=== PATIENT | female | born 1985 | race Caucasian/White ===

== ENCOUNTER 2024-12-26 08:15 | Outpatient (CLI) | payer OTHER, SELFPAY ==
--- OUTSIDE RECORDS SUMMARY | 2024-12-26 08:30 | XMS_ITS | Clinical Summary ---
Author Organization [employer] [facility] Address [address] [place] [address] Care Team Providers Care Safety Lamp Keeper Name Role Phone Alyx Hayes MD Primary Care Provider Source Comments [employer] [facility],non-owned Affiliates and Associated Physician Practices is amultiple site organization consisting of ambulatory clinics and hospital sitesin [place], [place], [place] and [place]. This disclosure is being madepursuant to the Care Everywhere program and may not contain all information available regarding this patient. Last updated 17.[employer] [facility] Allergies No known active allergies Medications * This document contains information received from the source organization and may not represent a complete record from that organization. * Be aware that medications may not be up to date on this document. Alwaysverify current medications with the patient. LORazepam (Ativan) 1 MG tabletIndicatio ns:Anxiety Take 1 (one) tablet by mouth 2 times daily as needed for Anxiety Reasons: Feeling Anxious 15 tablet 3 Active FLUoxetine (PROzac) 20 MG capsuleIndicati ons:Depression Take 1 (one) capsule by mouth once daily Reasons: Depression 30 capsule 2 3 Active nicotine polacrilex (Nicorette) 2 MG gumIndications: Nicotine Dependence Take 1 (one) Each by mouth as needed for Smoking Cessation - Gum should be slowly chewed until a peppery taste emerges, then parked between cheek and gum to facilitate nicotine absorption. - Avoid eating or drinking for 15 minutes before and during chewing gum. Reasons: Nicotine Addiction 20 Each 3 Active Active Problems Problem Noted Date Diagnosed Date Adjustment disorder with mixed anxiety and depre ssed mood 07/31/2022 Hx of section 08/01/2020 Encounter for anatomic survey 08/01/2020 AMA (advanced maternal age) multigravida 35+, second trimester 08/01/2020 History of gestational diabetes mellitus (GDM) 0 08/01/2020 Social History Tobacco Use Types Packs/Day Years Used Date Smoking Tobacco: Every Day Cigarettes Smokeless Tobacco: Never Tobacco Cessation:Ready to Q uit: No; Counseling Given: Yes Alcohol Use Standard Drinks/Week Comments Never 0 (1 standard drink = 0.6 oz pur e alcohol) AUDIT-C Answer Date Recorded Q1: How often do you have a drink containing alcohol? Never 07/31/2022 Q2: How many drinks containi ng alcohol do you have on a typical day when you are drinking? Patient does not drink Q3: How often do you have si x or more drinks on one occasion? Never 07/31/2022 Overall Financial Resource Strain (CARDIA) Answe r Date Recorded How hard is it for you to pa y for the very basics like food, housing, medical care, and heating? Not very hard 07/31/2022 [facility] [place] [facility] Occupat ional Health - Occupational Stress Questionnaire Answer Date Recorded Do you feel stress - tense, restless, nervous, or anxious, or unable to sleep at night because your mind is troubled all the time - these days? Very much 07/31/2022 Hunger Vital Sign Answer Date Recorded Within the past 12 months, y ou worried that your food would run out before you got the money to buy more. Never true 08/01/19 23 Within the past 12 months, t he food you bought just didn't last and you didn't have money to get more. Never true 07/31/2022 PRAPARE - Transportation Answer Date Re corded In the past 12 months, has l ack of transportation kept you from medical appointments or from getting medications? No 07/13 In the past 12 months, has l ack of transportation kept you from meetings, work, or from getting things needed for daily living? No 07/31/2022 Housing Stability Vital Sign Answer Juan Carlos e Recorded In the last 12 months, was t here a time when you were not able to pay the mortgage or rent on time? No 07/31/2022 In the last 12 months, how many places have you lived? 1 07/31/2022 In the last 12 months, was t here a time when you did not have a steady place to sleep or slept in a care home (including now)? No 07/31/2022 Comments No Sex and Gender Information Value Date Recorded Sex Assigned at Not on file Legal Sex Female 7:10 AM [employer] Gender Identity Not on file Sexual Orientation Not on file Last Filed Vital Signs Vital Sign Reading Time Taken Comments Blood Pressure 110/76 08/04/2022 7:15 AM CDT Pulse 73 08/04/2022 7:15 AM CDT Temperature 36.6 C (97.9 F) 08/04/2022 7:15 AM CDT Respiratory Rate 18 08/04/2022 7:15 AM CDT Oxygen Saturation 98% 08/04/2022 7:15 AM CDT Inhaled Oxygen Concentration 21% 08/01/2022 1 1:37 PM CDT Weight 110 kg (242 lb 9.6 oz) 07/31/2022 1:14 AM CDT Height 165.1 cm (5' 5) 07/31/2022 1:14 AM CDT Body Mass Index 40.37 07/31/2022 1:14 AM CDT Plan of Treatment Health Maintenance Due Date Last Done Comments LIPID TESTING 1983 MAMMOGRAM 1983 HEPATITIS C SCREENING 10/26/2001 DTAP/TDAP/TD VACCINES (1 - Tdap) 10/30/2002 HEPATITIS B VACCINE (1 of 3 - 19+ 3-dose series) 10/30/2002 PNEUMOCOCCAL VACCINE (1 of 2 - PCV) 10/30/2002 PAP SMEAR 10/30/2004 HPV VACCINE (1 - 3-dose SCDM series) 10/30/2010 DEPRESSION SCREENING 03/15/2024 COVID-19 VACCINE (1 - 2023- season) 2024 INFLUENZA VACCINE (#1) 2024 , 01/06/2019, 01/27/2018, Additional history exists ZOSTER VACCINE (1 of 2) 10/30/2033 HIV SCREENING Completed 10/14/2020 HIB VACCINE Aged Out No longer eligi ble based on patient's age to complete this topic MENINGOCOCCAL (Group B) VACCINE SHARED DECISION-MAKING Aged Out No longer eligible based on patient's age to complete this topic MENINGOCOCCAL GROUPS A/C/Y/W VACCINE Aged Out No longer eligible based on patient's age to complete this topic Insurance [facility] Address: [facility] [address] [place] [address] [place] [facility] Advance Directives * Full Code (Latest Code Status on File) Date Activated Date Inactivated Comments 07/31/2022 1:16 AM 08/04/2022 11:33 AM Care Teams Safety Lamp Keeper Relationship Specialty Start Date End Date Alyx Hayes MD [address] [place] [address] PCP - General Family Medicine 07/31/22
--- OUTSIDE RECORDS SUMMARY | 2024-12-26 08:30 | XMS_ITS | Patient Health Record ---
Author Organization [facility] Address [address] [place] [address] Care Team Providers Care Ecmo Specialist Name Role Phone Dr. Alyx Hayes Primary Care Provider [phone] Fabricio Bustillo Unavailable [phone] Ju Chaney Unavailable [phone] Alyx Cruz Unavailable [phone] Migration, Provider Unavailable Unavailable Dr. Symone Baker Unavailable [phone] Allergies No Known Allergies Results Component Value Reference Range Flag Notes Hemoglobin A1C Reviewed date:06/26/2024 12:16:34 PM Interpretation:5.6% Performing Lab: Notes/Report: 5.6% Hemoglobin A1c {Glycosylated } Reviewed date:07/27/2024 10:31:58 PM Interpretation: Performing Lab: Notes/Report: Test Performed by: [address] [address] Body Sander: Sandor Vaz DO Hemoglobin A1c 5.6 <=6.4 % Hemoglobin A1C < 5.7% = Normal 5.7-6.4% = Increased risk for future diabetes >=6.5% = Diabetes eAvg Glucose 114 <=117 mg/dL eAG Reference Range <117 mg/dL = Normal 117-137 mg/dL = Increased Risk For Future Diabetes >137 mg/dL = Diabetes Comprehensive Metabolic Pane l Reviewed date:07/27/2024 10:31:58 PM Interpretation: Performing Lab: Notes/Report: Test Performed by: [address] [address] Body Sander: Sandor Vaz DO Glucose Lvl 125 74-109 mg/dL H ADA risk stratification for diabetes <100 mg/dL = Normal 100-125 mg/dL = Increased risk for future diabetes >=126 mg/dL = Diabetes, if on more than one testing occasion BUN 10 7-25 mg/dL Creatinine Lvl 0.91 0.60-1.20 mg/dL eGFR CKD-EPI 81 >=90 mL/min/1.73 m2 L The CKD-EPI equation is validated in individuals 18 years of age and older. It is less accurate in patients with extremes of muscle mass, restriction of dietary protein, ingestion of creatine, extra-renal metabolism of creatinine, or treatment with medications that affect renal tubular creatinine secretion. GFR Categories in Chronic Kidney Disease (CKD) GFR GFR (mL/min/1.73 Category: square meters): Interpretation: G1 90 or greater Normal or high* G2 60-89 Mild decrease* G3a 45-59 Mild to moderate decrease G3b 30-44 Moderate to severe decrease G4 15-29 Severe decrease G5 14 or less Kidney failure *In the absence of evidence of kidney damage, neither GFR category G1 nor G2 fulfill the criteria for CKD (Kidney Int Suppl 2013;3:1-150) Calcium Lvl 8.8 8.6-10.3 mg/dL Sodium Lvl 138 136-145 mmol/L Potassium Lvl 4.0 3.5-5.1 mmol/L Chloride Lvl 107 98-107 mmol/L CO2 24 21-31 mmol/L Anion Gap 6.5 <=16.0 mmol/L Alk Phos 73 34-104 unit/L Bilirubin Total 0.4 0.3-1.0 mg/dL Albumin Lvl 4.0 3.5-5.2 g/dL Protein Total 6.4 6.4-8.9 g/dL Albumin/Globulin Ratio 1.7 1.1-2.5 ALT 16 7-52 unit/L AST 10 13-39 unit/L L Hemoglobin A1C Reviewed date:10/03/2024 11:01:16 AM Interpretation:5.4 Performing Lab: Notes/Report: 5.4 Hemoglobin A1c {Glycosylated } Reviewed date:10/12/2024 08:28:49 AM Interpretation: Performing Lab: Notes/Report: Test Performed by: Geni Blandon [address] [address] Body Sander: Sandor Vaz DO Report Forwarded By: [address] [address] Hemoglobin A1c 6.3 <=6.4 % Hemoglobin A1C < 5.7% = Normal 5.7-6.4% = Increased risk for future diabetes >=6.5% = Diabetes eAvg Glucose 134 <=117 mg/dL H eAG Reference Range <117 mg/dL = Normal 117-137 mg/dL = Increased Risk For Future Diabetes >137 mg/dL = Diabetes Extra Gold SST Reviewed date:10/12/2024 08:28:49 AM Interpretation: Performing Lab: Notes/Report: Report Forwarded By: [address] [address] Charge Venipuncture Reviewed date:10/12/2024 08:28:49 AM Interpretation: Performing Lab: Notes/Report: Report Forwarded By: [address] [address] Reason For Referral Reason Recurrent otitis med ia, chronic ear drum perforation. Diagnosis 1 Recurrent acute supp urative otitis media of right ear without spontaneous rupture of tympanic membrane (H66.004) Diagnosis 2 Perforation of left tympanic membrane (H72.92) Referral Organization [facility] Referring Provider First Name Fabricio Referring Provider Last Name Iwona Referring Provider Speciality Physician Bone Crusher Referred Provider Specialty Ear, nose an d throat surgeon General Notes Tonie Villeda 0 12/01/2024 11:34:52 AM CDT >Cannot refer pt to [place] d/t insurance. Only takes medicaid referrals from [facility] providers., Tonie Villeda 12/01/2024 11:39:00 AM CDT >Called pt and pt okay with referral sent to anywhere insurance is accepted, Tonie Villeda 12/01/2024 01:15:51 PM CDT >Referral faxed to ENT at [place] [phone], Serina John 12/22/2024 05:08:37 PM CDT >pt reports she has appt 12/25/2024 Referral Priority Routine Referral Appointment Date 12/25/2024 Medications Medication SIG (Take, Route, Frequency, Duration) Notes Start Date End Date Status Nurtec 75 MG Tablet Disintegrating 1 tablet on the tongue and allow to dissolve Orally daily; Duration: 30 days 10/11/2024 Active Ciprofloxacin-dexAMET Hasone 0.3-0.1 % Suspension 4 drops into affected ear Otic Twice a day; Duration: 7 days 11/24/2024 Active predniSONE 20 MG Tablet 3 tablet with food or milk Orally Once a day; Duration: 5 days 12/21/2024 Active Trulicity 0.75 MG/0.5ML Solution Auto-injector 0.5mL Subcutaneous weekly; Duration: 28 days 09/13/2024 Active [employer] Basic System Use up to 4x/day to monitor blood sugars.; Duration: 90 days Type 2 Diabetes E11.9 Pt. home glucometer broke 04/10/2024 Active valACYclovir HCl 500 MG Tablet 2 tablet Orally 3 times a day; Duration: 7 days 12/21/2024 12/28/2024 Active [employer] Delica Plus Nepusi10K - Miscellaneous USE DAILY TO CHECK BLOOD SUGAR; Duration: 90 Active OneTouch Verio - Strip TEST 4 TIMES DAILY; Duration: 90 Active Pen Romulus 32G X 4 MM Miscellaneous use weekly; Duration: 100 days disp 1 box Active Triamcinolone Acetonide 0.1 % Cream 1 application External Two times a Week; Duration: 14 days 11/30/2024 Active Fluconazole 150 MG Tablet 1 tablet now and may repeat in 2 days if needed Orally 12/08/2024 Active Social History Social History Additional Details Category Social Info Options Details Migrated Social History Migrated Social History Alcohol history:Never drinks alcohol , Tobacco history:Current every day smoker ,notes : 1/2 pk/day Problems Problem Type SNOMED Code ICD Code Onset Dates Problem Status W/U Status Risk Notes Problem Morbid obesity (disorder) (535699935) Morbid (severe) obesity due to excess calories (E66.01) Active confirmed Problem Generalized anxiety disorder (96270962) Generalized anxiety disorder (F41.1) 12/16/19 24 Active confirmed Problem Insomnia (112144122) Insomnia, unspecified (G47.00) 08/08/19 23 Active confirmed Problem Blood chemistry abnormal (421948434) Other specified abnormal findings of blood chemistry (R79.89) 09/21/19 21 Active confirmed Problem Disturbance of skin sensation (037698244) Disturbance of skin sensation (782.0) 09/18/19 18 Problem resolved confirmed Problem Candidiasis of mouth (03934397) Candidal stomatitis (B37.0) 07/10/19 22 Problem resolved confirmed Problem Arthralgia of the pelvic region and thigh (552275534) Pain in right hip (M25.551) 07/15/19 18 Problem resolved confirmed Problem Chest pain (59270866) Chest pain, unspecified (R07.9) 09/19/19 21 Problem resolved confirmed Problem Muscle pain (38086210) Myalgia, unspecified site (M79.10) 09/19/19 21 Problem resolved confirmed Problem Fatigue (57992087) Other fatigue (R53.83) 07/29/19 18 Problem resolved confirmed Problem Malaise (228196128) Other malaise (R53.81) 09/21/19 21 Problem resolved confirmed Problem Abdominal pain (98552613) Unspecified abdominal pain (R10.9) 11/20/19 22 Problem resolved confirmed Problem Cough (22636276) Cough (R05) 05/14/19 19 Problem resolved confirmed Problem Myalgia (30879068) Myalgia (M79.1) 07/29/19 18 Problem resolved confirmed Problem Pain of right shoulder region (finding) (5638729555) Pain in right shoulder (M25.511) 11/01/19 21 Problem resolved confirmed Problem Joint pain (75508954) Pain in unspecified joint (M25.50) 09/19/19 21 Problem resolved confirmed Problem Constipation (47974617) Constipation, unspecified (K59.00) 11/20/19 22 Problem resolved confirmed Problem Non-infective enteritis and colitis (851750426) Noninfective gastroenteritis and colitis, unspecified (K52.9) 01/14/20 22 Problem resolved confirmed Problem Bronchitis (93712614) Bronchitis, not specified as acute or chronic (J40) 06/12/19 22 Problem resolved confirmed Problem Chronic sinusitis (89465463) Chronic sinusitis, unspecified (J32.9) 03/31/19 23 Problem resolved confirmed Problem Acute sinusitis (07377225) Acute sinusitis, unspecified (J01.90) 10/23/19 18 Problem resolved confirmed Problem Otorrhea (89182663) Otorrhea, unspecified ear (H92.10) 09/27/19 21 Problem resolved confirmed Problem Perforation of tympanic membrane (61401009) Unspecified perforation of tympanic membrane, unspecified ear (H72.90) 07/10/19 22 Problem resolved confirmed Problem Central perforation of tympanic membrane (46816291) Central perforation of tympanic membrane, unspecified ear (H72.00) 10/08/19 18 Problem resolved confirmed Problem Otitis media (08305677) Otitis media, unspecified, bilateral (H66.93) 06/12/19 22 Problem resolved confirmed Problem Chronic purulent otitis media (19629632) Other chronic suppurative otitis media, bilateral (H66.3X3) 05/07/19 22 Problem resolved confirmed Problem Dystonia (74810912) Dystonia, unspecified (G24.9) 07/29/19 18 Problem resolved confirmed Problem Pre-surgery evaluation (175413837) Other specified pre-operative examination (V72.83) 10/06/19 18 Problem resolved confirmed Problem General examination of patient (229071791) Routine general medical examination at health care facility (V70.0) 07/15/19 18 Problem resolved confirmed Problem Cough (44281741) Cough (786.2) 05/14/19 19 Problem resolved confirmed Problem Muscle pain (27697064) Unspecified myalgia and myositis (729.1) 07/29/19 18 Problem resolved confirmed Problem Acute sinusitis (44214560) Acute sinusitis, unspecified (461.9) 10/23/19 18 Problem resolved confirmed Problem Central perforation of tympanic membrane (14244021) Central perforation of tympanic membrane (384.21) 10/08/19 18 Problem resolved confirmed Problem Tobacco user (015660111) Nondependent tobacco use disorder (305.1) 07/15/19 18 Problem resolved confirmed Problem Blepharospasm (24217735) Blepharospasm (333.81) 07/29/19 18 Problem resolved confirmed Problem Noncompliance with treatment (finding) (1319299) Patient's noncompliance with other medical treatment and regimen due to unspecified reason (Z91.199) 09/17/19 23 Inactive confirmed Problem Acute candidiasi s of vulva and vagina (B37.31) 11/08/19 23 Inactive confirmed Problem Urinary tract infectious disease (disorder) (54052899) Urinary tract infection, site not specified (N39.0) 11/08/19 23 Inactive confirmed Problem Pain in limb (25335069) Pain in right toe(s) (M79.674) 11/12/19 Inactive confirmed Problem Pain in right foot (282414428745191 ) Pain in right foot (M79.671) 11/12/19 Inactive confirmed Problem Depression (658303799) Depression, unspecified (F32.A) 08/08/19 Active confirmed Problem Exocrine pancreatic insufficiency (30922000) Exocrine pancreatic insufficiency (K86.81) 07/24/19 Active confirmed Problem History of excision of intestinal structure (355857161) Acquired absence of other specified parts of digestive tract (Z90.49) 07/10/19 Active confirmed Problem Family history of ischemic heart disease (895818533) Family history of ischemic heart disease and other diseases of the circulatory system (Z82.49) 10/08/19 23 Active confirmed Problem Tobacco use (300007539) Tobacco use (Z72.0) 10/03/19 23 Active confirmed Problem 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) Generalized hyperhidrosis (R61) 10/08/19 23 Active confirmed Problem Snoring (59055506) Snoring (R06.83) 03/31/19 23 Active confirmed Problem Elevated blood pressure reading without diagnosis of hypertension (333271378) Elevated blood-pressure reading, without diagnosis of hypertension (R03.0) 10/08/19 23 Active confirmed Problem Gastro-esophagea l reflux disease without esophagitis (665232669) Gastro-esophageal reflux disease without esophagitis (K21.9) 11/20/19 22 Active confirmed Problem Migraine without aura, not refractory (disorder) (210984811) Migraine, unspecified, not intractable, without status migrainosus (G43.909) 10/03/19 23 Active confirmed Problem Tobacco user (024749033) Nicotine dependence, cigarettes, uncomplicated (F17.210) 07/15/19 18 Active confirmed Problem Vitamin D deficiency (41696967) Vitamin D deficiency, unspecified (E55.9) 08/11/19 23 Active confirmed Problem Type II diabetes mellitus without complication (050593458) Type 2 diabetes mellitus without complications (E11.9) 12/22/19 24 Active confirmed Problem Herpes zoster without complication (387611036) Zoster without complications (B02.9) 01/20/20 23 Active confirmed Problem Cough (finding) (27547109) Cough, unspecified (R05.9) 03/31/19 23 Problem resolved confirmed Problem Encounter for screening for COVID-19 (Z11.52) 06/12/19 22 Problem resolved confirmed Problem COVID-19 (062946036) COVID-19 (U07.1) 11/01/19 22 Problem resolved confirmed Problem Inflammatory disorder of breast (745442867) Abscess of the breast and nipple (N61.1) 12/26/19 22 Problem resolved confirmed Problem Pre-procedure evaluation check (559443510) Encounter for other preprocedural examination (Z01.818) 07/15/19 18 Problem resolved confirmed Problem Adult health examination (815022306) Encounter for general adult medical examination without abnormal findings (Z00.00) 07/15/19 18 Problem resolved confirmed Vital Signs Heart Rate 95 /min 12/21/2024 Temperature 98.8 degrees Fahrenheit 12/21/2024 Respiratory Rate 18 /min 12/21/2024 Height-cm 166.37 cm 12/21/2024 Oximetry 99 % 12/21/2024 Blood pressure diastolic 78 mm Hg 12/21/2024 Weight-kg 97.89 kg 12/21/2024 Height 65.50 in 12/21/2024 Blood pressure systolic 104 mm Hg 12/21/2024 Weight 215.8 lbs 12/21/2024 BMI 35.36 kg/m2 12/21/2024 Procedures Procedure Date Ordered Date Performed Result Body Sit e SPECIAL EYE EVALUATION 12/18/2024 12/18/2024 N/A Encounters Encounter Location Date Provider Diagnosis [place] [address] [place] [address] 12/29/2023 Provider Migration Urinary tract infection, site not specified N39.0 ; Patient's noncompliance with other medical treatment and regimen due to unspecified reason Z91.199 ; Pain in right toe(s) M79.674 ; Pain in right foot M79.671 and Acute candidiasis of vulva and vagina B37.31 [place] [address] [place] [address] [facility], [facility] ear H92.01 and Unspecified contact dermatitis, unspecified cause L25.[address] [address] 01/17/2024 Alyx Cruz Tobacco use Z72.0 ; Migraine, unspecified, not intractable, without status migrainosus G43.909 ; Type 2 diabetes mellitus without complications E11.9 and Generalized anxiety disorder F41.1 [place] [id number]/27/2024 Alyx Cruz Type 2 diabetes mellitus without complication, without long-term current use of insulin E11.9 ; Morbid (severe) obesity due to excess calories E66.01 ; Obesity, class 3 E66.813 ; Depression, unspecified F32.A ; Generalized anxiety disorder F41.1 and Tobacco use Z72.0 [place] [address]/26/2024 Alyx Cruz Type 2 diabetes mellitus without complications E11.9 and Morbid (severe) obesity due to excess calories E66.01 [place] [id number]/27/2024 Alyx Cruz Type 2 diabetes mellitus with hyperglycemia, unspecified whether manager terminal insulin use E11.65 [place] [id number]/28/2024 Ju Chaney Acute non-recurrent sinusitis, unspecified location J01.90 and Acute conjunctivitis of right eye, unspecified acute conjunctivitis type H10.31 [place] [id number]/03/2024 Alyx Cruz Type 2 diabetes mellitus with hyperglycemia, unspecified whether long-term insulin use E11.65 and Boil L02.[address] [address] 11/24/2024 Fabricio Bustillo Recurrent acute suppurative otitis media of right ear without spontaneous rupture of tympanic membrane H66.004 and Perforation of left tympanic membrane H72.[address] [address] 11/30/2024 Ju walker stin g T63.461A [place] [id number]/21/2024 Dr. Symone Baker Herpes zoster B02.9 and Type 2 diabetes mellitus without complications E11.[address] [address] 02/12/2024 Provider Migration [address] [address] 02/13/2024 Provider Migration [address] [address] 03/28/2024 Dr. Alyx Hayes [address] [address] 04/10/2024 Dr. Wisdom [address] [address] 05/05/2024 Alyx Cruz Type 2 diabetes mellitus without complications E11.[address] [address] 07/04/2024 Alyx Cruz Type 2 diabetes mellitus without complications E11.[address] [address] 07/27/2024 Alyx Cruz Type 2 diabetes mellitus without complications E11.[address] [address] 09/05/2024 Alyx Cruz Type 2 diabetes mellitus without complications E11.[address] [address] 10/10/2024 Alyx Cruz Type 2 diabetes mellitus with hyperglycemia, unspecified whether long-term insulin use E11.[address] [address] 12/08/2024 Dr. Alyx Hayes [address] [address] 12/22/2024 Dr. Symone Baker Assessments Encounter Date Diagnosis (ICD Code) Assessment Notes Treatment Notes Treatment Clinical Notes Section Notes 09/05/2024 Type 2 diabetes mellitus without complications (ICD-10 - E11.9) 11/24/2024 Recurrent acute suppurative otitis media of right ear without spontaneous rupture of tympanic membrane (ICD-10 - H66.004) - Acute otitis externa/media with significant swelling, erythema, drainage, and active bleeding. Bleeding lesion/area in canal.- Prescribed augmentin for 10 days, twice daily. Advised to avoid q-tips in ear. Recommended follow-up in 2 weeks, or sooner if symptoms worsen (e.g., increased pain, fever, or lack of improvement). Advised to take augmentin with food to minimize gastrointestinal upset.- Risks and side effects: Discussed potential for gastrointestinal upset and diarrhea due to augmentin, take with food.- Recurrent ear infections with history of tympanic membrane perforations and persistent drainage.- Recommended ENT referral, has seen ENT in past but not for 3-4 years. 07/27/2024 Type 2 diabetes mellitus without complications (ICD-10 - E11.9) 08/28/2024 Acute conjunctivitis of right eye, unspecified acute conjunctivitis type (ICD-10 - H10.31) -Right eye is red, feel it is more from sinuses being inflamed than a true pink eye. Hopeful that treating sinuses will clear up eye and nose. Call if no improvement then will call in eye drops 08/28/2024 Acute non-recurrent sinusitis, unspecified location (ICD-10 - J01.90) Been congested for about week, with ear pain, draiage from left ear, pain in right ear, and right eye being red. Would recommend a daily nasal spray and a decongestant. 11/24/2024 Perforation of left tympanic membrane (ICD-10 - H72.92) 11/30/2024 Accidental wasp sting (ICD-10 - T63.461A) - Localized inflammatory reaction with pustule, likely secondary to insect sting or bite. No evidence of cellulitis. Differential includes spider bite, but presentation is more consistent with bee sting- She is already on Augmentin for ears, will have her continue- Will give Dex 6mg IM-Start TCN cream 0.1% cream to apply to area-Recommend daily zyrtec. 12/21/2024 Type 2 diabetes mellitus without complications (ICD-10 - E11.9) Diabetes mellitus: - Diabetes mellitus, currently well-controlled (last A1c in 10/06 less than 6%), with concern for hyperglycemia due to corticosteroid therapy. - Advised to closely monitor blood glucose levels during prednisone therapy. Advised to report any significant hyperglycemia or symptoms of poor glycemic control. - Risks and side effects: Discussed risk of hyperglycemia with corticosteroid use. 12/21/2024 Herpes zoster (ICD-10 - B02.9) [place] syndrome (herpes zoster oticus):- Vesicles of ear canal and lesions over right lower lip concerning for [place] syndrome. No evidence of Sapp's palsy at this time. Differential diagnosis included herpes simplex for oral lesions, but clinical findings and history support [place] syndrome. Patient does have a previous history of shingles.- Prescribed valacyclovir 1000 mg orally three times daily for 7 days. Prescribed prednisone 60 mg orally daily for 5 days. Advised to monitor for ocular involvement (eye pain, erythema, vision changes, or periocular rash) and to seek immediate medical attention if these symptoms develop. Advised to attend scheduled ENT appointment on Wednesday for further evaluation. Advised to limit close contact with others, especially unvaccinated or immunocompromised individuals, and avoid direct facial contact Practice appropriate hand hygiene. Provided education regarding potential complications, including hearing loss and neurologic sequelae. Advised to utilize walk-in clinic or emergency services if symptoms worsen or new neurologic deficits arise.- Risks and side effects: Discussed risk of insomnia with prednisone. Discussed risk of permanent hearing loss if not treated promptly. initially sent 40mg x5 days for prednisone, rx canceled and sent 60mg daily x5 days 10/03/2024 Type 2 diabetes mellitus with hyperglycemia, unspecified whether manager terminal insulin use (ICD-10 - E11.65) MEDICATIONS: No change to current medication regimen. Condition stable; A1C today is 5.4%. Increased Trulicity to 1.5mg weekly x 3 months; recheck A1C in 3 months. FOLLOW-UP: Schedule a follow-up visit in 3 months. 10/03/2024 Boil (ICD-10 - L02.92) - Right armpit nodule, likely a boil or inflammed folliculitis, currently decreasing in size/improving.- Prescribe Mupirocin topical ointment, apply 2-3 times daily to clean, dry area. - Prescribe oral antibiotic (Cephalexin), 3 times daily for 10 days. - Advise warm compresses (not baths).- Contingency plan: If no improvement or worsening, return for possible drainage or further evaluation. 10/10/2024 Type 2 diabetes mellitus with hyperglycemia, unspecified whether long-term insulin use (ICD-10 - E11.65) 03/27/2024 Type 2 diabetes mellitus without complication, without long-term current use of insulin (ICD-10 - E11.9) - Diabetes management is ongoing. Previous A1C 3 months ago was 6.8%. Patient is on Metformin 500 mg twice daily since December 2023. Reports occasional gastrointestinal side effects, which are considered normal since cholecystectomy. - Check A1C today. Depending on results, consider adjusting/increasin g Metformin dose if needed and/or adding another oral medication like Rybelsus. - We discussed potential use of weekly injections like Ozempic or Mounjaro if A1C is increasing. - She is willing to trial injection first before Rybelsus if possible depending on insurance coverage/cost for diabetes management and weight loss benefits. - Discussed potential GI side effects of GLP-1 injections with patient. - Continue with daily exercise/movement, diet and smoking cessation. current A1C is 6.3% - will send in for Semaglutide (Ozempic) for DM management and weight loss per PT request. - continue Metformin 500mg BID. 05/05/2024 Type 2 diabetes mellitus without complications (ICD-10 - E11.9) 06/26/2024 Type 2 diabetes mellitus without complications (ICD-10 - E11.9) - Blood sugar levels have dropped significantly since starting Ozempic. Current regimen includes Ozempic 0.5mg weekly and Metformin 500mg BID. Blood sugar levels are generally in the 90s in the morning. - POC A1C today is 5.6%- Plan to decrease Metformin to 500mg daily instead of BID and continue current dose of Ozempic weekly. - Monitor blood sugar levels daily. - F/U in 1 month to see how she is doing with dose adjustments. 07/04/2024 Type 2 diabetes mellitus without complications (ICD-10 - E11.9) 07/27/2024 Type 2 diabetes mellitus with hyperglycemia, unspecified whether long-term insulin use (ICD-10 - E11.65) MEDICATIONS: No change to current medication regimen today; will wait for labs to come back first. Could adjust Ozempic to 1mg weekly and reduce Metformin to 500mg daily instead of BID.RECOMMENDATIONS : adherence to diabetic diet, HgbA1C level checked quarterly, urine microalbumin test yearly, daily foot self-inspection, lower blood pressure, yearly dental exams, annual eye exams, needyearly flu shots and daily exercise and importance to take medications regularly and proper foot care. FOLLOW-UP: Schedule a follow-up visit in 2-3 months. COUNSELING: Advised as to the targets of pre-meal glucoses (80-120 mg/dl) and postmeal glucoses (140-160 mg/dl). Home glucose testing discussed. The A1C target of less than 7% according to AACE were discussed. 12/29/2023 Pain in right foot (ICD-10 - M79.671) 12/29/2023 Pain in right toe(s) (ICD-10 - M79.674) 12/29/2023 Urinary tract infection, site not specified (ICD-10 - N39.0) 12/29/2023 Acute candidiasis of vulva and vagina (ICD-10 - B37.31) 12/29/2023 Patient's noncompliance with other medical treatment and regimen due to unspecified reason (ICD-10 - Z91.199) 01/06/2024 Otalgia, right ear (ICD-10 - H92.01) 01/06/2024 Unspecified contact dermatitis, unspecified cause (ICD-10 - L25.9) 01/17/2024 Type 2 diabetes mellitus without complications (ICD-10 - E11.9) 01/17/2024 Generalized anxiety disorder (ICD-10 - F41.1) 01/17/2024 Migraine, unspecified, not intractable, without status migrainosus (ICD-10 - G43.909) 01/17/2024 Tobacco use (ICD-10 - Z72.0) 03/27/2024 Morbid (severe) obesity due to excess calories (ICD-10 - E66.01) 03/27/2024 Obesity, class 3 (ICD-10 - E66.813) 06/26/2024 Morbid (severe) obesity due to excess calories (ICD-10 - E66.01) 03/27/2024 Depression, unspecified (ICD-10 - F32.A) - Chronic, stable. - Continue Wellbutrin and Fluoxetine daily. - Encouraged therapy/counseling. 03/27/2024 Generalized anxiety disorder (ICD-10 - F41.1) - Chronic, stable. - Continue Wellbutrin and Fluoxetine daily. - Encouraged therapy/counseling. 03/27/2024 Tobacco use (ICD-10 - Z72.0) - Discussed risks of smoking. - Encouraged smoking cessation and the benefits of not smoking to better her health overall. - She is not ready to quit yet, but trying to decrease the number of cigarettes she smokes a day. - She does take Wellbutrin, which can help to stop smoking.. Plan Of Treatment Pending Test Test Name Order Date Hemoglobin A1c 03/27/2024 Next Appt Details Provider Name:Alyx Bone er, 01/03/2025 10:45:00 AM, [address] [facility], [place], [address], [phone] Insurance Providers Payer Name Payer Address Payer Phone Subscriber Number Group Number Insured Name Patient Relationship to Insured Coverage Start Date Coverage End Date [facility] Att[facility] Claims Dept [address] [place] [address] [id number] Serena Varela Self - patient is the insured 5 [employer] [place] [employer] Public [employer] [facility] [address] [address] [place] [address] [id number] Serena Varela Self - patient is the insured 1 5 Medications Administered Medication Instructions Date of Administration Dosage Notes dexAMETHasone 11/30/2024 6 mg Medical (General) History Medical History History ICD Code Hypocalcemia Hypocalcemia Acute suppurative otitis med ia with spontaneous rupture of ear drum, recurrent, right ear Other gastritis without bleeding Epigastric pain Flushing Morbid (severe) obesity due to excess ca lories E66.01 Depression, unspecified F32.A Gastro-esophageal reflux disease without esophagitis K21.9 Type 2 diabetes mellitus without complic ations E11.9 Vitamin D deficiency, unspecified E55.9 Generalized anxiety disorder F41.1 Surgical History Surgery Date(Month/Year) Pressure equalization tubes 07/14/2017 Appendectomy 07/14/2017 delivery 07/14/2017 Tonsil/adenoidectomy 07/14/2017 Cholecystectomy 11/23/2019 Hysteroscopy ,notes : Dr Brown with D&C, stromal breakdown with benign squamous and endocervical mucosa 02/03/23 ([id number]) INCISION/FIXATION OF FEMUR ,notes : 2002 renetta from Right hip to knee; 2007 Rt Femur revision 2008 knee surgery 2014 hysterectomy ,notes : total - Dr Rut Johnson 07/05/2023
== END 2024-12-26 08:16 | disposition home or self-care (01) ==
LOC: ANHAUDIO 08:16
PROVIDERS: PCP Student in an Organized Health Care Education/Training Program; Visit Provider Otolaryngology
DX: H66.91 Otitis media, unspecified, right ear (principal); H90.11 Conductive hearing loss, unilateral, right ear, with unrestricted hearing on the contralateral side
CPT/HCPCS: 92557; 92567

== ENCOUNTER 2024-12-30 11:00 | Outpatient (CLI) | payer OTHER, SELFPAY ==
--- NOTE | ~2024-12-30 | CT_ITS ---
EXAMINATION: CT IAC/mastoids BI wo con DATE: 12/30/2024 11:26 INDICATION: Otitis media, unspecified, right ear. TECHNIQUE: Computed tomography (CT) of the temporal bones was performed without intravenous contrast. Automated exposure control and iterative reconstruction technique were employed. The dose-length product was 487.11 mGy-cm. COMPARISON: None FINDINGS: RIGHT TEMPORAL BONE: The internal auditory canal, cochlea, vestibule, semicircular canals, vestibular aqueduct, facial nerve course, carotid canal, and jugular bulb are normal. There are erosions of hamate and incus. There is thickening of the tympanic membrane. There are changes of mastoidectomy. LEFT TEMPORAL BONE: The internal auditory canal, cochlea, vestibule, semicircular canals, vestibular aqueduct, carotid canal, jugular bulb, facial nerve course, ossicles, Prussak space, scutum, and mastoid air cells are normal. There is thickening of the tympanic membrane. The external auditory canal is normal. IMPRESSION: 1. Erosions of right hamate and incus with thickening of the right tympanic membrane and changes of right mastoidectomy, consistent with chronic otitis media. 2. Thickening of left tympanic membrane. Reviewed, dictated and finalized at location E. IMPRESSION: 1. Erosions of right hamate and incus with thickening of the right tympanic mem brane and changes of right mastoidectomy, consistent with chronic otitis media. 2. Thickening of left tympanic membrane.
== END 2024-12-30 11:01 | disposition home or self-care (01) ==
PROVIDERS: PCP Student in an Organized Health Care Education/Training Program; Visit Provider Otolaryngology
DX: H66.91 Otitis media, unspecified, right ear (principal)
CPT/HCPCS: 70480

== ENCOUNTER 2025-01-18 15:44 | Outpatient (NON) | payer OTHER, SELFPAY ==
--- OUTSIDE RECORDS SUMMARY | 2025-01-18 20:59 | XMS_ITS | Encounter Summary ---
Author Organization [facility] Address [address] [place] [address] Care Team Providers Care Global Chief Creative Officer Name Role Phone Alyx Hayes MD Primary Care Provider Encounter Details Date Type Department Care Team (Late st Contact Info) Description 11/15/2019 Prep for Procedure [facility] [address] [place] [id number] [place] [address] [address] Social History Tobacco Use Types Packs/Day Years Used Date Smoking Tobacco: Every Day Cigarettes Smokeless Tobacco: Never Alcohol Use Standard Drinks/Week Comments No 0 (1 standard drink = 0.6 oz pur e alcohol) AUDIT-C Answer Date Recorded Frequency of Alcohol Consumption Never 09/12/2018 Average Number of Drinks Not on file 019 Frequency of Binge Drinking Not on file 03/2018 Comments No Sex and Gender Information Value Date Recorded Sex Assigned at Female 01/27/2023 11:00 AM HEAVY DUTY DIESEL MECHANIC Legal Sex Female 6:57 PM CDT Gender Identity Female 01/27/2023 11:00 AM HEAVY DUTY DIESEL MECHANIC Sexual Orientation Straight 01/27/2023 11 :00 AM HEAVY DUTY DIESEL MECHANIC COVID-19 Exposure Response Date Recorded In the last month, have you been in contact with someone who was confirmed or suspected to have Coronavirus / COVID-19? No / Unsure 11/15/2019 1:42 PM CDT documented as of this encounter Functional Status * RETIRED Are you deaf or do you have serious difficulty hearing Answer Date of Assessment Author Status No 10/03/2019 10:45 AM CDT Acti ve * RETIRED Are you blind or do you have serious difficulty seeing, even when wearing glasses? Answer Date of Assessment Author Status No 10/03/2019 10:45 AM CDT Acti ve * Do you have serious difficulty walking or climbing stairs? Answer Date of Assessment Author Status No 10/03/2019 10:45 AM CDT Phyllis Unger RN Active * Do you have difficulty dressing or bathing? Answer Date of Assessment Author Status No 10/03/2019 10:45 AM CDT Phyllis Unger RN Active * Because of a physical, mental, or emotional condition, do you have difficulty doing errands alone such as visiting a doctor's office or shopping? Answer Date of Assessment Author Status No 10/03/2019 10:45 AM CDT Phyllis Unger RN Active documented as of this encounter Mental Status * Because of a physical, mental, or emotional condition, do you have serious difficulty concentrating, remembering, or making decisions? Answer Entry Date Author Status No 10/03/2019 10:45 AM CDT Phyllis Unger RN Active documented in this encounter Plan of Treatment Not on file documented as of this encounter Results * PRE-SURGICAL/PRE-PROCEDURE CORONAVIRUS (COVID 19) (11/19/2019 10:24 AM CDT) CORONAVIRUS SARS COV 2 PCR (RESP) NOT DETECTED NOT DETECTED 11/20/2019 6:35 PM CDT [facility] Comment: A Not Detected (negative) test result for this test means that SARS- CoV-2 RNA was not present in the specimen above the limit of detection. A negative result does not rule out the possibility of COVID-19 and should not be used as the sole basis for treatment or patient management decisions. If COVID-19 is still suspected, based on exposure history together with other clinical findings, re-testing should be considered in consultation with public health authorities. Laboratory test results should always be considered in the context of clinical observations and epidemiological data in making a final diagnosis and patient management decisions. Please review the Fact Sheets and FDA authorized labeling available for health care providers and patients using the following websites: https://www.[employer]/home/Covid-19/HCP/NAAT/fact-sheet2 https://www.[employer]/home/Covid-19/Patients/NAAT/ fact-sheet2 This test has been authorized by the FDA under an Emergency Use Authorization (EUA) for use by authorized laboratories. Due to the current public health emergency, [facility] is receiving a high volume of samples from a wide variety of swabs and media for COVID-19 testing. In order to serve patients during this public health crisis, samples from appropriate clinical sources are being tested. Negative test results derived from specimens received in non-commercially manufactured viral collection and transport media, or in media and sample collection kits not yet authorized by FDA for COVID-19 testing should be cautiously evaluated and the patient potentially subjected to extra precautions such as additional clinical monitoring, including collection of an additional specimen. Methodology: Nucleic Acid Amplification Test (NAAT) includes PCR or TMA Additional information about COVID-19 can be found at the [facility] website: www.[employer]/Covid19. Test performed at [facility] [place] [address] [place] [address] Director: IVETTE KIRAN DO,MPH NASOPHARYNGEAL SWAB / Unknown 11/19/2019 10:24 AM CDT us Jaime Cowan MD MICROBIOLOGY - GENERAL ORDERABLES Final Result [facility] [id number] [place] [address] documented in this encounter Visit Diagnoses Diagnosis Pre-op testing- Primary Preoperative examination, unspecified documented in this encounter Additional Health Concerns Infection Onset Date Last Indicated Resolved Time COVID-19 Rule Out 11/19/2019 11/19/2019 11/20/2019 6:35 PM CDT COVID-19 Rule Out 01/08/2020 01/08/2020 02/03/2021 4:28 PM HEAVY DUTY DIESEL MECHANIC COVID-19 Rule Out 02/21/2022 02/21/2022 02/22/2022 12:01 AM HEAVY DUTY DIESEL MECHANIC COVID-19 Rule Out 03/15/2022 03/15/2022 03/15/2022 2:08 PM HEAVY DUTY DIESEL MECHANIC COVID-19 Rule Out 07/30/2022 07/30/2022 07/30/2022 6:50 PM CDT COVID-19 Rule Out 10/05/2022 10/05/2022 10/06/2022 3:10 AM CDT documented as of this encounter Care Teams Global Chief Creative Officer Relationship Specialty Start Date End Date Alyx Hayes MD [address] [place] [address] PCP - General FAMILY PRACTICE 08/16/18 documented as of this encounter
--- OUTSIDE RECORDS SUMMARY | 2025-01-18 20:59 | XMS_ITS | Encounter Summary ---
Author Organization [facility] Address [address] [place] [address] Care Team Providers Care Rn Oncology Research Name Role Phone Alyx Hayes MD Primary Care Provider Reason for Referral * Surgical (Routine) - Closed Specialty Diagnoses / Procedures Referred By Zainac t Referred To Contact Procedures Case request operating room: ARTHROSCOPY KNEE Holland Young MD [address] [place] [address] Phone: tel: fax: Referral ID Status Reason Start Date Expiration Date Visits Re quested Visits Authorized [id number] Closed 10/04/2018 11/05/2019 1 1 * Surgical (Routine) - Closed Specialty Diagnoses / Procedures Referred By Contvirginia contreras Referred To Contact Procedures Case request operating room: ARTHROSCOPY KNEE Holland Young MD [address] [place] [address] Phone: tel: fax: Referral ID Status Reason Start Date Expiration Date Visits Re quested Visits Authorized [id number] Closed 09/12/2018 10/14/2019 1 1 Encounter Details Date Type Department Care Team (Late st Contact Info) Description 09/12/2018 [place] [address] Holland Young MD [address] [place], [place] [id number] Social History Tobacco Use Types Packs/Day Years Used Date Smoking Tobacco: Every Day Smokeless Tobacco: Never Alcohol Use Standard Drinks/Week Comments No 0 (1 standard drink = 0.6 oz pur e alcohol) AUDIT-C Answer Date Recorded Frequency of Alcohol Consumption Never 09/12/2018 Average Number of Drinks Not on file 019 Frequency of Binge Drinking Not on file 03/2018 Comments Unknown Sex and Gender Information Value Date Recorded Sex Assigned at Female 01/27/2023 11:00 AM APPLICATION HELPER Legal Sex Female 6:57 PM CDT Gender Identity Female 01/27/2023 11:00 AM APPLICATION HELPER Sexual Orientation Straight 01/27/2023 11 :00 AM APPLICATION HELPER documented as of this encounter Functional Status documented as of this encounter Plan of Treatment Scheduled Orders Name Type Priority Associated Diagnoses Orde r Schedule Case request operating room: ARTHROSCOPY KNEE Case Request Routine Once for 1 Occurrences starting 10/04/2018 until 10/04/2018 documented as of this encounter Visit Diagnoses Not on filedocumented in this encounter Additional Health Concerns Infection Onset Date Last Indicated Resolved Time COVID-19 Rule Out 11/19/2019 11/19/2019 11/20/2019 6:35 PM CDT COVID-19 Rule Out 01/08/2020 01/08/2020 02/03/2021 4:28 PM APPLICATION HELPER COVID-19 Rule Out 02/21/2022 02/21/2022 02/22/2022 12:01 AM APPLICATION HELPER COVID-19 Rule Out 03/15/2022 03/15/2022 03/15/2022 2:08 PM APPLICATION HELPER COVID-19 Rule Out 07/30/2022 07/30/2022 07/30/2022 6:50 PM CDT COVID-19 Rule Out 10/05/2022 10/05/2022 10/06/2022 3:10 AM CDT documented as of this encounter Care Teams Rn Oncology Research Relationship Specialty Start Date End Date Alyx Hayes MD [address] [place] [address] PCP - General FAMILY PRACTICE 08/16/18 documented as of this encounter
--- OUTSIDE RECORDS SUMMARY | 2025-01-18 20:59 | XMS_ITS | Encounter Summary ---
Author Organization [facility] Address [address] [place] [address] Care Team Providers Care Educational Administrator Name Role Phone Alyx Hayes MD Primary Care Provider Encounter Details Date Type Department Care Team (Late st Contact Info) Description 01/04/2020 Prep for Procedure [facility] Day [facility] [address] [place] [address] Sourav Win MD [address] [facility] [address] [place] [address] Social History Tobacco Use Types Packs/Day Years [...] Sex Assigned at Female 01/27/2023 11:00 AM PUTAWAY DRIVER Legal Sex Female 6:57 PM CDT Gender Identity Female 01/27/2023 11:00 AM PUTAWAY DRIVER Sexual Orientation Straight 01/27/2023 11 :00 AM PUTAWAY DRIVER COVID-19 Exposure Response Date Recorded In the last month, have you been in contact with someone who was confirmed or suspected to have Coronavirus / COVID-19? No / Unsure 01/04/2020 2:39 PM CDT documented as of this encounter [...] Assessment Author Status No 10/03/2019 10:45 AM KAVITHAT Phyllis Unger, RN Active documented as of this encounter Mental Status * Because of a physical, mental, or emotional condition, do you have serious difficulty concentrating, remembering, or making decisions? Answer Entry Date Author Status No 10/03/2019 10:45 AM CDT Phyllis Unger, RN Active documented in this encounter Plan of Treatment Not on file documented as of this encounter Visit Diagnoses Diagnosis Pre-op testing- Primary Preoperative examination, unspecified documented in this encounter Additional Health Concerns Infection Onset Date Last Indicated Resolved Time COVID-19 Rule Out 01/08/2020 01/08/2020 02/03/2021 4:28 PM PUTAWAY DRIVER COVID-19 Rule Out 02/21/2022 02/21/2022 02/22/2022 12:01 AM PUTAWAY DRIVER COVID-19 Rule Out 03/15/2022 03/15/2022 03/15/2022 2:08 PM PUTAWAY DRIVER COVID-19 Rule Out 07/30/2022 07/30/2022 07/30/2022 6:50 PM CDT COVID-19 Rule Out 10/05/2022 10/05/2022 10/06/2022 3:10 AM CDT documented as of this encounter Care Teams Educational Administrator Relationship Specialty Start Date End Date Alyx Hayes MD [address] [place] [address] PCP - General FAMILY PRACTICE 08/16/18 documented as of this encounter
--- OUTSIDE RECORDS SUMMARY | 2025-01-18 20:59 | XMS_ITS | Clinical Summary ---
Author Organization [facility] Address [facility]ly [facility] [place] [address] Care Team Providers Care Harness Worker Name Role Phone Alyx Hayes MD Primary Care Provider Allergies No known active allergies Medications FLUoxetine (PROZAC) 40 MG capsule Take 1 capsule (40 mg total) by mouth daily. 11/06/2022 Active LORazepam (ATIVAN) 1 MG tablet Take 1 tablet (1 mg total) by mouth as needed. 08/04/2022 Active metFORMIN (GLUCOPHAGE) 500 MG tablet TAKE 1 TABLET BY MOUTH TWICE A DAY WITH MORNING AND EVENING MEALS 06/30/2023 Active gabapentin (NEURONTIN) 100 MG capsule Take 3 capsules (300 mg total) by mouth every 8 (eight) hours. 15 capsule 07/05/2023 Active oxyCODONE immediate release (ROXICODONE) 5 MG immediate release tabletIndicatio ns:Acute Pain < 3 Day Supply Take 1 tablet (5 mg total) by mouth every 6 (six) hours as needed. Indications: Acute Pain < 3 Day Supply 6 split tab 07/05/2023 Active naproxen (NAPROSYN) 250 MG tablet Take 2 tablets (500 mg total) by mouth every 8 (eight) hours. 60 tablet 11/07/2023 Active Active Problems Problem Noted Date Diagnosed Date Tobacco abuse 07/05/2023 Insulin resistance 07/05/2023 Abnormal uterine bleeding 02/03/2023 Obesity, Class III, BMI 40-49.9 (morbid obesity) 02/03/2023 delivery delivered 12/14/2020 AMA (advanced maternal age) multigravida 35+, second trimester 08/01/2020 Encounter for anatomic survey 08/01/2020 History of gestational diabetes mellitus (GDM) 0 08/01/2020 Hx of section 08/01/2020 Gallstones 10/18/2019 Overview (10/18/2019): Added automatically from request for surgery [id number] 10/03/2019 Resolved Problems Problem Noted Date Diagnosed Date Resolved Date Patellofemoral disorder of left knee 10/19/2018 11/17/2018 Acute medial meniscus tear of left knee 09/12/2018 10/11/2018 Immunizations Immunization Administration Dates Next Due Dtap 08/11/2016 Dtp 10/13/1988, 7,06/02/1984,1984,01/15/1984 Fluzone 6 Months+ Quad (0.5 mL Prefilled Syringe) 12/13/2020 Hepatitis B 05/13/2000,12/19/1999,11/14/1999 MMR 10/07/1992,02/06/1985 Opv 10/13/1988, 7,06/02/1984,1984,01/15/1984 Td 12/13/1998 Tdap (Boostrix) 07/27/2019,08/11/2016 Tdap (Generic) 10/16/2020 Tetanus Toxoid Inj 11/12/2010 Family History Medical History Relation Comments Asthma Brother 1 None Brother 2 Asthma Daughter 1 None Daughter 2 None Daughter 3 Diabetes Father Cancer Mother Colon cancer None Sister Relation Status Comments Brother 1 Alive Brother 2 Alive Daughter 1 Alive Daughter 2 Alive Daughter 3 Alive Father Alive Mother Alive Sister Alive Son Alive Social History Tobacco Use Types Packs/Day Years Used Date Smoking Tobacco: Every Day Cigarettes 0.5 30 Smokeless Tobacco: Never Tobacco Cessation:Ready to Q uit: Not Asked; Counseling Given: Not Answered Alcohol Use Standard Drinks/Week Comments No 0 (1 standard drink = 0.6 oz pur e alcohol) AUDIT-C Answer Date Recorded Frequency of Alcohol Consumption Never 09/12/2018 Average Number of Drinks Not on file 019 Frequency of Binge Drinking Not on file 03/2018 PHQ-2 Answer Date Recorded Patient Health Questionnaire-2 Score 0 01/14/2023 Comments No Sex and Gender Information Value Date Recorded Sex Assigned at Female 01/27/2023 11:00 AM NEW ORDER CLERK Legal Sex Female 6:57 PM CDT Gender Identity Female 01/27/2023 11:00 AM NEW ORDER CLERK Sexual Orientation Straight 01/27/2023 11 :00 AM NEW ORDER CLERK Last Filed Vital Signs Vital Sign Reading Time Taken Comments Blood Pressure 138/94 07/05/2023 3:08 PM CDT Pulse 79 07/05/2023 3:08 PM CDT Temperature 36.9 C (98.4 F) 11/07/2023 2:41 PM CDT Respiratory Rate 18 11/07/2023 2:41 PM CDT Oxygen Saturation 97% 07/05/2023 3:08 PM CDT Inhaled Oxygen Concentration - - Weight 112.5 kg (248 lb) 07/05/2023 9:26 AM CDT Height 165.1 cm (5' 5) 07/05/2023 9:26 AM CDT Body Mass Index 41.27 07/05/2023 9:26 AM CDT Plan of Treatment Health Maintenance Due Date Last Done Comments Cervical Cancer Screening Pap Smear (Age 30 to 64) Every 3 Years 1983 Annual Physical 10/30/1986 Hepatitis C 10/30/2001 Pneumococcal Vaccine: Pediatrics (0 to 5 Years) and At-Risk Patients (6 to 49 Years) (1 of 2 - PCV) 10/30/2002 HPV Vaccines (1 - 3-dose SCDM series) 10/30/2010 Cervical Cancer Screening Pap with HPV Testing (Age 30 to 64) Every 5 Years 10/30/2013 Cervical Cancer Screening with HPV 10/30/2013 Mammogram Screening 2023 PHQ-2 (Physician [place]) 03/15/2024 01/14/2023 COVID-19 Vaccine ( - season) 2024 Influenza Adult (#1) 2024 12/13/2020 DTaP, Tdap and Td Vaccines (6 - Td or Tdap) 10/16/2030 10/16/2020, 07/27/2019, 08/11/2016, Additional history exists Hepatitis B Vaccines Completed 05/13/2000, 12/19/1999, 11/14/1999 Hepatitis A Vaccines Aged Out No long er eligible based on patient's age to complete this topic Meningococcal B Vaccine Aged Out No l onger eligible based on patient's age to complete this topic Meningococcal Vaccine Aged Out No reyna oswaldo eligible based on patient's age to complete this topic RSV Immunizations Under 20 Months Aged Out No longer eligible based on patient's age to complete this topic Medical Devices Implanted Type Area Customer Service Dispatcher Device Identifier Shelf Expiration Date Model / Serial / Lot Jose Juan Jose Juan Right: Femur Insurance MEDICAID DEPT OF [address] Advance Directives Documents on File Type Date Recorded Patient Stock Drier Tender Expl anation Advance Directives and Living Will 10/09/2018 12:00 AM ADVANCED DIRECTIVES * Full Code (Latest Code Status on File) Date Activated Date Inactivated Comments 02/03/2023 8:19 AM 02/03/2023 11:32 AM * Full Code Date Activated Date Inactivated Comments 12/12/2020 1:40 PM 12/14/2020 4:13 PM * Full Code Date Activated Date Inactivated Comments 10/03/2019 3:26 PM 10/05/2019 3:56 PM * Full Code Date Activated Date Inactivated Comments 09/01/2019 11:05 AM 09/01/2019 3:17 PM Care Teams Harness Worker Relationship Specialty Start Date End Date Alyx Hayes MD [address] [place] [id number] PCP - General FAMILY PRACTICE 08/16/18
--- OUTSIDE RECORDS SUMMARY | 2025-01-18 20:59 | XMS_ITS | Encounter Summary ---
Author Organization [facility] Address [address] [place] [id number] Care Team Providers Care Hide Trimmer Name Role Phone Alyx Hayes MD Primary Care Provider Encounter Details Date Type Department Care Team (Late st Contact Info) Description 08/20/2018 Abstract [facility]FL CONVERSION [address] [place], [place] [id number] , Generic Conversion, Social History Tobacco Use Types Packs/Day Years Used Date Smoking Tobacco: Never Assessed Comments Unknown Sex and Gender Information Value Date Recorded Sex Assigned at Female 01/27/2023 11:00 AM SUPERANNUATION FUNDS MANAGER Legal Sex Female 6:57 PM CDT Gender Identity Female 01/27/2023 11:00 AM SUPERANNUATION FUNDS MANAGER Sexual Orientation Straight 01/27/2023 11 :00 AM SUPERANNUATION FUNDS MANAGER documented as of this encounter Plan of Treatment Not on file documented as of this encounter Visit Diagnoses Not on filedocumented in this encounter Additional Health Concerns Infection Onset Date Last Indicated Resolved Time COVID-19 Rule Out 11/19/2019 11/19/2019 11/20/2019 6:35 PM CDT COVID-19 Rule Out 01/08/2020 01/08/2020 02/03/2021 4:28 PM SUPERANNUATION FUNDS MANAGER COVID-19 Rule Out 02/21/2022 02/21/2022 02/22/2022 12:01 AM SUPERANNUATION FUNDS MANAGER COVID-19 Rule Out 03/15/2022 03/15/2022 03/15/2022 2:08 PM SUPERANNUATION FUNDS MANAGER COVID-19 Rule Out 07/30/2022 07/30/2022 07/30/2022 6:50 PM CDT COVID-19 Rule Out 10/05/2022 10/05/2022 10/06/2022 3:10 AM CDT documented as of this encounter Care Teams Hide Trimmer Relationship Specialty Start Date End Date Alyx Hayes MD [address] [place] [address] PCP - General FAMILY PRACTICE 08/16/18 documented as of this encounter
--- OUTSIDE RECORDS SUMMARY | 2025-01-18 20:59 | XMS_ITS | Clinical Summary ---
Author Organization [facility] Address [address] [place] [address] Care Team Providers Care Digital Strategy Director Name Role Phone Alyx Hayes MD Primary Care Provider Source Comments [facility],non-owned Affiliates and Associated Physician Practices is amultiple site organization consisting of ambulatory clinics and hospital sitesin [place], [place], [place] and [place]. This disclosure is being madepursuant to the Care Everywhere program and may not contain all information available regarding this patient. Last updated 17.[email or web address] Allergies No known active allergies Medications * [...] care, and heating? Not very hard 07/31/2022 [facility] [place] [facility] - Occupational Stress [...] place to sleep or slept in a [facility] (including now)? 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 Advance Directives * Full Code (Latest Code Status on File) Date Activated Date Inactivated Comments 07/31/2022 1:16 AM 08/04/2022 11:33 AM Care Teams Digital Strategy Director Relationship Specialty Start Date End Date Alyx Hayes MD [address] [place] [address] PCP - General Family Medicine 07/31/22
--- OUTSIDE RECORDS SUMMARY | 2025-01-18 20:59 | XMS_ITS | Encounter Summary ---
Author Organization [facility] Address [address] [place] [id number] Care Team Providers Care Labour Market Economist Name Role Phone Alyx Hayes MD Primary Care Provider Encounter Details Date Type Department Care Team (Late st Contact Info) Description 09/12/2018 [place] [address] Tonie Ortiz, Nurse Film Writer I Social History Tobacco Use Types Packs/Day Years [...] Sex Assigned at Female 01/27/2023 11:00 AM SAP PLANT MAINTENANCE CONSULTANT Legal Sex Female 6:57 PM CDT Gender Identity Female 01/27/2023 11:00 AM SAP PLANT MAINTENANCE CONSULTANT Sexual Orientation Straight 01/27/2023 11 :00 AM SAP PLANT MAINTENANCE CONSULTANT documented as of this encounter Functional Status documented as of this encounter Plan of Treatment Not on file documented as of this encounter Visit Diagnoses Not on filedocumented in this encounter Additional Health Concerns Infection Onset Date Last Indicated Resolved Time COVID-19 Rule Out 11/19/2019 11/19/2019 11/20/2019 6:35 PM CDT COVID-19 Rule Out 01/08/2020 01/08/2020 02/03/2021 4:28 PM SAP PLANT MAINTENANCE CONSULTANT COVID-19 Rule Out 02/21/2022 02/21/2022 02/22/2022 12:01 AM SAP PLANT MAINTENANCE CONSULTANT COVID-19 Rule Out 03/15/2022 03/15/2022 03/15/2022 2:08 PM SAP PLANT MAINTENANCE CONSULTANT COVID-19 Rule Out 07/30/2022 07/30/2022 07/30/2022 6:50 PM CDT COVID-19 Rule Out 10/05/2022 10/05/2022 10/06/2022 3:10 AM CDT documented as of this encounter Care Teams Labour Market Economist Relationship Specialty Start Date End Date Alyx Hayes MD [address] [place] [address] PCP - General FAMILY PRACTICE 08/16/18 documented as of this encounter
== END 2025-01-18 15:45 | disposition home or self-care (01) ==
LOC: ANHGOSHLAB 15:45
PROVIDERS: PCP Student in an Organized Health Care Education/Training Program; Visit Provider Otolaryngology
DX: H66.91 Otitis media, unspecified, right ear (principal)
CPT/HCPCS: 87070; 87186; 87205